=== PATIENT | female | born 1995 | race Caucasian/White ===

== ENCOUNTER 2020-08-30 15:46 | Emergency (ER) | payer OTHER ==
[~2020-08-30] VITALS: Ht 157.5 cm; Wt 68.2 kg
[2020-08-30] MEDS ORDERED: HYDR-3713 PO (15:53)
[2020-08-30] MEDS ORDERED: AMOX500C PO (15:53)
[2020-08-30] MEDS ORDERED: IBUP200C25 PO (15:53)
[2020-08-30] MEDS ORDERED: NS 1,000 ML IV ONE (17:25)
[2020-08-30] MEDS ORDERED: ONDANSETRON 4MG/2ML VIAL IV ONE (17:25)
[2020-08-30] MEDS ORDERED: MORPHINE 4 MG/ML 1ML VIAL/SYRINGE (J2270) IV ONE (17:25)
[2020-08-30 17:57] LABS: BASO # 0.1 10^3/uL (0.0-0.2); BASO % 0.6 % (0.0-1.0); EOS # 0.1 10^3/uL (0.0-0.5); EOS % 0.8 % (0.0-3.0); HEMATOCRIT 39.5 % (36.0-47.0); HEMOGLOBIN 12.6 g/dl (12.0-15.5); LYMPH # 1.6 10^3/uL (1.5-5.0); LYMPH % 16.3 % (24.0-44.0); MEAN CORPUSCULAR HEMOGLOBIN 29.3 pg (27.0-33.0); MEAN CORPUSCULAR HGB CONC 31.9 g/dl (32.0-36.5); MEAN CORPUSCULAR VOLUME 91.9 fl (80.0-96.0); MONO # 0.5 10^3/uL (0.0-0.8); MONO % 5.2 % (2.0-8.0); NEUTROPHILS # 7.3 10^3/uL (1.5-8.5); NEUTROPHILS % 76.8 % (36.0-66.0); PLATELET COUNT, AUTOMATED 341 10^3/uL (150-450); WHITE BLOOD COUNT 9.5 10^3/uL (4.0-10.0)
[2020-08-30 18:16] LABS: ERYTHROCYTE SEDIMENTATION RATE 16 mm/hr (0-20)
[2020-08-30] MEDS ORDERED: HYDR-3715 PO (19:21)
[2020-08-30] MEDS ORDERED: ONDA4TAB6 PO (19:21)
[2020-08-30 19:29] VITALS: BP 101/56
== END 2020-08-30 19:43 | disposition home or self-care (01) ==
LOC: M ED 15:46
DX: G89.18 Other acute postprocedural pain (principal); Z79.2 Long term (current) use of antibiotics; Z91.013 Allergy to seafood
CPT/HCPCS: 80047; 85025; 85652; 86140; 96374; 96375; 99283; J2270; J2405

== ENCOUNTER 2020-10-17 15:38 | Emergency (ER) | payer OTHER ==
[~2020-10-17] VITALS: Ht 157.5 cm; Wt 61.7 kg
[~2020-10-17 15:38] MED LIST: AMOX500C PO; HYDR-3713 PO; HYDR-3715 PO; IBUP200C25 PO; ONDA4TAB6 PO
[2020-10-17 20:53] VITALS: BP 107/55
== END 2020-10-17 20:55 | disposition home or self-care (01) ==
LOC: M ED 15:38
DX: R19.7 Diarrhea, unspecified (principal); Z91.013 Allergy to seafood

== ENCOUNTER 2021-04-06 09:27 | Emergency (ER) | payer OTHER ==
[~2021-04-06] VITALS: Ht 157.5 cm; Wt 60.1 kg
--- OUTSIDE RECORDS SUMMARY | 2021-04-06 09:36 | CCD ---
Author Author [facility] Organization [facility] Address Unknown Phone Unavailable Care Team Providers Care Freight Broker Agent Name Role Phone Kaitlynn Etienne MD Unavailable Unavailable Kaitlynn Etienne MD Unavailable Unavailable Kaitlynn Etienne MD Unavailable Unavailable Kaitlynn Etienne MD Unavailable Unavailable Kaitlynn Etienne MD Unavailable Unavailable Kaitlynn Etienne MD Unavailable Unavailable Kaitlynn Etienne MD Unavailable Unavailable Kaitlynn Etienne MD Unavailable Unavailable Kaitlynn Etienne MD Unavailable Unavailable Kaitlynn Etienne MD Unavailable Unavailable Kaitlynn Etienne MD Unavailable Unavailable Kaitlynn Etienne MD Unavailable Unavailable Kaitlynn Etienne MD Unavailable Unavailable Kaitlynn Etienne MD Unavailable Unavailable Kaitlynn Etienne MD Unavailable Unavailable Kaitlynn Etienne MD Unavailable Unavailable Kaitlynn Etienne MD Unavailable Unavailable Kaitlynn Etienne MD Unavailable Unavailable Kaitlynn Etienne MD Unavailable Unavailable Kaitlynn Etienne MD Unavailable Unavailable Kaitlynn Etienne MD Unavailable Unavailable Kaitlynn Etienne MD Unavailable Unavailable Kaitlynn Etienne MD Unavailable Unavailable Kaitlynn Etienne MD Unavailable Unavailable Kaitlynn Etienne MD Unavailable Unavailable Kaitlynn Etienne MD Unavailable Unavailable Kaitlynn Etienne MD Unavailable Unavailable Kaitlynn Etienne MD Unavailable Unavailable Kaitlynn Etienne MD Unavailable Unavailable Kaitlynn Etienne MD Unavailable Unavailable Kaitlynn Etienne MD Unavailable Unavailable Kaitlynn Etienne MD Unavailable Unavailable Kaitlynn Etienne MD Unavailable Unavailable Kaitlynn Etienne MD Unavailable Unavailable Kaitlynn Etienne MD Unavailable Unavailable Kaitlynn Etienne MD Unavailable Unavailable Kaitlynn Etienne MD Unavailable Unavailable Kaitlynn Etienne MD Unavailable Unavailable Kaitlynn Etienne MD Unavailable Unavailable Kaitlynn Etienne MD Unavailable Unavailable Kaitlynn Etienne MD Unavailable Unavailable Kaitlynn Etienne MD Unavailable Unavailable Kaitlynn Etienne MD Unavailable Unavailable Kaitlynn Etienne MD Unavailable Unavailable Kaitlynn Etienne MD Unavailable Unavailable Kaitlynn Etienne MD Unavailable Unavailable Kaitlynn Etienne MD Unavailable Unavailable Kaitlynn Etienne MD Unavailable Unavailable Kaitlynn Etienne MD Unavailable Unavailable Kaitlynn Etienne MD Unavailable Unavailable Kaitlynn Etienne MD Unavailable Unavailable Kaitlynn Etienne MD Unavailable Unavailable Kaitlynn Etienne MD Unavailable Unavailable Kaitlynn Etienne MD Unavailable Unavailable Kaitlynn Etienne MD Unavailable Unavailable Kaitlynn Etienne MD Unavailable Unavailable Kaitlynn Etienne MD Unavailable Unavailable Kaitlynn Etienne MD Unavailable Unavailable Kaitlynn Etienne MD Unavailable Unavailable Kaitlynn Etienne MD Unavailable Unavailable Kaitlynn Etienne MD Unavailable Unavailable Kaitlynn Etienne MD Unavailable Unavailable Kaitlynn Etienne MD Unavailable Unavailable Kaitlynn Etienne MD Unavailable Unavailable Kaitlynn Etienne MD Unavailable Unavailable Kaitlynn Etienne MD Unavailable Unavailable Kaitlynn Etienne MD Unavailable Unavailable Kaitlynn Etienne MD Unavailable Unavailable Kaitlynn Etienne MD Unavailable Unavailable Kaitlynn Etienne MD Unavailable Unavailable Kaitlynn Etienne MD Unavailable Unavailable Kaitlynn Etienne MD Unavailable Unavailable Kaitlynn Etienne MD Unavailable Unavailable Kaitlynn Etienne MD Unavailable Unavailable Kaitlynn Etienne MD Unavailable Unavailable Kaitlynn Etienne MD Unavailable Unavailable Kaitlynn Etienne MD Unavailable Unavailable Kaitlynn Etienne MD Unavailable Unavailable Kaitlynn Etienne MD Unavailable Unavailable Kaitlynn Etienne MD Unavailable Unavailable Kaitlynn Etienne MD Unavailable Unavailable Kaitlynn Etienne MD Unavailable Unavailable Kaitlynn Etienne MD Unavailable Unavailable Kaitlynn Etienne MD Unavailable Unavailable Kaitlynn Etienne MD Unavailable Unavailable Kaitlynn Etienne MD Unavailable Unavailable Kaitlynn Etienne MD Unavailable Unavailable Kaitlynn Etienne MD Unavailable Unavailable Kaitlynn Etienne MD Unavailable Unavailable Kaitlynn Etienne MD Unavailable Unavailable Kaitlynn Etienne MD Unavailable Unavailable Kaitlynn Etienne MD Unavailable Unavailable Kaitlynn Etienne MD Unavailable Unavailable LAROCK, J JARRELL SINGLE FOLD MACHINE OPERATOR Unavailable Unavailable LAROCK, J JARRELL SINGLE FOLD MACHINE OPERATOR Unavailable Unavailable LAROCK, J JARRELL SINGLE FOLD MACHINE OPERATOR Unavailable Unavailable LAROCK, J JARRELL SINGLE FOLD MACHINE OPERATOR Unavailable Unavailable LAROCK, J JARRELL SINGLE FOLD MACHINE OPERATOR Unavailable Unavailable LAROCK, J JARRELL SINGLE FOLD MACHINE OPERATOR Unavailable Unavailable LAROCK, J JARRELL SINGLE FOLD MACHINE OPERATOR Unavailable Unavailable LAROCK, J JARRELL SINGLE FOLD MACHINE OPERATOR Unavailable Unavailable LAROCK, J JARRELL SINGLE FOLD MACHINE OPERATOR Unavailable Unavailable LAROCK, J JARRELL SINGLE FOLD MACHINE OPERATOR Unavailable Unavailable LAROCK, J JARRELL SINGLE FOLD MACHINE OPERATOR Unavailable Unavailable LAROCK, J JARRELL SINGLE FOLD MACHINE OPERATOR Unavailable Unavailable LAROCK, J JARRELL SINGLE FOLD MACHINE OPERATOR Unavailable Unavailable LAROCK, J JARRELL SINGLE FOLD MACHINE OPERATOR Unavailable Unavailable LAROCK, J JARRELL SINGLE FOLD MACHINE OPERATOR Unavailable Unavailable LAROCK, J JARRELL SINGLE FOLD MACHINE OPERATOR Unavailable Unavailable LAROCK, J JARRELL SINGLE FOLD MACHINE OPERATOR Unavailable Unavailable LAROCK, J JARRELL SINGLE FOLD MACHINE OPERATOR Unavailable Unavailable LAROCK, J JARRELL SINGLE FOLD MACHINE OPERATOR Unavailable Unavailable LAROCK, J JARRELL SINGLE FOLD MACHINE OPERATOR Unavailable Unavailable LAROCK, J JARRELL SINGLE FOLD MACHINE OPERATOR Unavailable Unavailable LAROCK, J JARRELL SINGLE FOLD MACHINE OPERATOR Unavailable Unavailable Re-disclosure Warning The records that you are about to access may contain information from federally-assisted alcohol or drug abuse programs. If such information is present, then the following federally mandated warning applies: This information has been disclosed to you from records protected by federal confidentiality rules (42 CFR part 2). The federal rules prohibit you from making any further disclosure of this information unless further disclosure is expressly permitted by the written consent of the person to whom it pertains or as otherwise permitted by 42 CFR part 2. A general authorization for the release of medical or other information is NOT sufficient for this purpose. The Federal rules restrict any use of the information to criminally investigate or prosecute any alcohol or drug abuse patient.The records that you are about to access may contain highly sensitive health information, the redisclosure of which is protected by Article 27-F of the [facility] Public Health law. If you continue you may have access to information: Regarding HIV / AIDS; Provided by facilities licensed or operated by the [facility] Office of Mental Health; or Provided by the [facility] Office for People With Developmental Disabilities. If such information is present, then the following [facility] mandated warning applies: This information has been disclosed to you from confidential records which are protected by state law. State law prohibits you from making any further disclosure of this information without the specific written consent of the person to whom it pertains, or as otherwise permitted by law. Any unauthorized further disclosure in violation of state law may result in a fine or senior living sentence or both. A general authorization for the release of medical or other information is NOT sufficient authorization for further disc losure. Allergies and Adverse Reactions Type Description Substance Reaction Status Data Source(s ) Allergy to substance Allergy to substance Allergy to substance [facility] ([facility]) Allergy to substance Allergy to substance Allergy to substance [place] ([facility]) Family History Family Member Name Family Member Gender Family Member Status Date o f Status Description Data Source(s) Unknown Condition [facility] Unknown [facility] Unknown Condition [facility] Unknown Condition [facility] Unknown Condition [facility] Unknown Condition [facility] Unknown Condition [facility] Unknown Condition [facility] Unknown Condition [facility] Unknown Condition [facility] Unknown Condition [facility] Unknown Condition [facility] Encounters Encounter Providers Location Date Indications Data Source(s ) Socrates Etienne MD: [address] [place] [address] [phone], Ph. Attender: Socrates Etienne MD [facility] Medical 08/23/2020 12:00:00 AM EDT [place] ([facility]) Socrates Etienne MD: [address] [place] [address] [phone], Ph. Attender: Socrates Etienne MD [facility] Medical 07/26/2020 12:00:00 AM EDT [place] ([facility]) Socrates Etienne MD: [address] [place] [address] [phone], Ph. Attender: Socrates Etienne MD [facility] Medical 07/26/2020 12:00:00 AM EDT [place] ([facility]) Outpatient Attender: JARRELL MARIE NP 05/06 11:49:24 AM EST - 05/24/2020 12:25:35 PM EST [facility] ([facility] ) Immunizations Vaccine Date Status Description Data Source(s) COVID-19, mRNA, LNP-S, PF, 100 mcg/0.5 mL dose 08/23/2020 05 :18:39 PM EDT completed .5 mL [facility] ([facility]) COVID-19 VACCINE Moderna 08/23/2020 12:00:00 AM EDT completed [facility] Vaccine Series Complete: YESThis Data wa s Submitted to [facility] Via Take5. COVID-19, mRNA, LNP-S, PF, 100 mcg/0.5 mL dose 07/26/2020 05 :25:30 PM EDT completed .5 mL [facility] ([facility]) COVID-19, mRNA, LNP-S, PF, 100 mcg/0.5 mL dose 07/26/2020 05 :25:30 PM EDT completed .5 mL [facility] ([facility]) COVID-19 VACCINE Moderna 07/26/2020 12:00:00 AM EDT completed [facility] Vaccine Series Complete: NOThis Data was Submitted to [facility] Via Take5. Medications Medication Brand Name Start Date Product Form Dose Route Admi nistrative Instructions Pharmacy Instructions Status Indications Reaction Description Data Source(s) 500 mg 08/26/2020 12:00:00 AM EDT capsule 21 TAKE ONE CAPSULE BY MOUTH EVERY 8 HOURS UNTIL GONE TAKE ONE CAPSULE BY MOUTH EVERY 8 HOURS UNTIL GONE [facility] 0.12 % 08/26/2020 12:00:00 AM EDT mouthwash 473 RINSE AND SPIT WITH 15ML(1 CAPFUL) FOR 30 SECONDS IN THE MORNING AND EVENING AFTER BRUSHING TEETH RINSE AND SPIT WITH 15ML(1 CAPFUL) FOR 30 SECONDS IN THE MORNING AND EVENING AFTER BRUSHING TEETH SOLD: 08/26/2020 [facility] 800 mg 08/26/2020 12:00:00 AM EDT tablet 20 TAKE ONE TABLET BY MOUTH EVERY 8 HOURS TAKE ONE TABLET BY MOUTH EVERY 8 HOURS SOLD: 08/26/2020 [facility] Acetaminophen 325 MG / Hydrocodone Bitartrate 5 MG Ora l Tablet 5-325 mg HYDROCODONE/ACETAMINOPHEN 08/26/2020 12:00:00 AM EDT tablet 16 TAKE ONE TABLET BY MOUTH EVERY 6 HOURS NEEDED FOR PAIN MAXIMUM DAILY DOSE = 4 TABLETS TAKE ONE TABLET BY MOUTH EVERY 6 HOURS NEEDED FOR PAIN MAXIMUM DAILY DOSE = 4 TABLETS SOLD: 08/26/2020 [facility] Insurance Providers Payer name Policy type / Coverage type Policy ID Covered green party ID Covered green party's relationship to house Policy House Plan Information [employer]. [id number] Self [id number] GUSTAVO [id number] SP [id number] GUSTAVO [id number] Managed Care [place] P UNAVAILABLE S UNAVAILABLE MEDICAID -O/P EMERGENCY ROOM [id number] [facility] P UNAVAILABLE S UNAVAILABLE Problems, Conditions, and Diagnoses No Information Surgeries/Procedures No Information Results ID Date Data Source [id number] 05/24/2020 12:00:00 AM EST [facility] Name Value Range Interpretation Code Description Data Mariana rce(s) Supporting Document(s) SARS coronavirus 2 RNA [Presence] in Res piratory specimen by MIKE with probe detection NEGATIVE [facility] This lab was ordered by Judith Magallon and reported by [facility]. ID Date Data Source [id number] 05/24/2020 12:00:00 AM EST [facility] Name Value Range Interpretation Code Description Data Mariana rce(s) Supporting Document(s) Carestart Rapid COVID Antigen Test Negative [facility] This lab was reported by Judith pereira. Procedure Social History No Information
[2021-04-06 10:06] LABS: BASO # 0.1 10^3/uL (0.0-0.2); EOS # 0.2 10^3/uL (0.0-0.5); EOS % 3.6 % (0.0-3.0); HEMATOCRIT 40.1 % (36.0-47.0); HEMOGLOBIN 12.7 g/dl (12.0-15.5); LYMPH # 1.7 10^3/uL (1.5-5.0); LYMPH % 28.6 % (24.0-44.0); MEAN CORPUSCULAR HEMOGLOBIN 30.2 pg (27.0-33.0); MEAN CORPUSCULAR HGB CONC 31.7 g/dl (32.0-36.5); MEAN CORPUSCULAR VOLUME 95.5 fl (80.0-96.0); MONO # 0.5 10^3/uL (0.0-0.8); MONO % 9.2 % (2.0-8.0); NEUTROPHILS # 3.4 10^3/uL (1.5-8.5); NEUTROPHILS % 57.3 % (36.0-66.0); PLATELET COUNT, AUTOMATED 307 10^3/uL (150-450); WHITE BLOOD COUNT 5.9 10^3/uL (4.0-10.0)
[2021-04-06 10:16] LABS: APPEARANCE, URINE CLOUDY (CLEAR); BACTERIA, URINE AUTO 1+ (NEGATIVE); BILIRUBIN, URINE AUTO NEGATIVE (NEGATIVE); BLOOD, URINE BLOOD 3+ (NEGATIVE); CALCIUM OXALATE CRYSTALS LARGE; COLOR, URINE AMBER (YELLOW); GLUCOSE, URINE (UA) AUTO NEGATIVE (NEGATIVE); KETONE, URINE AUTO TRACE mg/dL (NEGATIVE); LEUKOCYTE ESTERASE, URINE AUTO NEGATIVE (NEGATIVE); MUCUS, URINE LARGE (NEGATIVE); NITRITE, URINE AUTO NEGATIVE (NEGATIVE); PROTEIN, URINE AUTO 2+ mg/dL (NEGATIVE); RBC, URINE AUTO TNTC /HPF (0-3); SPECIFIC GRAVITY URINE AUTO 1.032 (1.002-1.035); SQUAMOUS EPITHELIAL CELL UR AU 55 /HPF (0-6); WBC, URINE AUTO 6 /HPF (0-3)
[2021-04-06 10:41] LABS: BLOOD UREA NITROGEN 18 MG/DL (7-18); CALCIUM LEVEL 9.1 MG/DL (8.5-10.1); CARBON DIOXIDE LEVEL 30 MEQ/L (21-32); CHLORIDE LEVEL 109 MEQ/L (98-107); CREATININE FOR GFR 0.64 MG/DL (0.55-1.30); GLOMERULAR FILTRATION RATE > 60.0 (>60); GLUCOSE, FASTING 87 MG/DL (70-100); HCG, SERUM QUANTITATIVE 8 MIU/ML; POTASSIUM SERUM 3.9 MEQ/L (3.5-5.1); SODIUM LEVEL 143 MEQ/L (136-145)
--- OUTSIDE RECORDS SUMMARY | 2021-04-06 11:08 | CCD ---
Author Author [facility] Organization [facility] Address Unknown Phone Unavailable Care Team Providers Care Sign Fabricator Name Role Phone Kaitlynn Etienne MD Unavailable [...] Etienne MD Unavailable Unavailable LAROCK, J JARRELL COMMERCIAL SALES DIRECTOR Unavailable Unavailable LAROCK, J JARRELL COMMERCIAL SALES DIRECTOR Unavailable Unavailable LAROCK, J JARRELL COMMERCIAL SALES DIRECTOR Unavailable Unavailable LAROCK, J JARRELL COMMERCIAL SALES DIRECTOR Unavailable Unavailable LAROCK, J JARRELL COMMERCIAL SALES DIRECTOR Unavailable Unavailable LAROCK, J JARRELL COMMERCIAL SALES DIRECTOR Unavailable Unavailable LAROCK, J JARRELL COMMERCIAL SALES DIRECTOR Unavailable Unavailable LAROCK, J JARRELL COMMERCIAL SALES DIRECTOR Unavailable Unavailable LAROCK, J JARRELL COMMERCIAL SALES DIRECTOR Unavailable Unavailable LAROCK, J JARRELL COMMERCIAL SALES DIRECTOR Unavailable Unavailable LAROCK, J JARRELL COMMERCIAL SALES DIRECTOR Unavailable Unavailable LAROCK, J JARRELL COMMERCIAL SALES DIRECTOR Unavailable Unavailable LAROCK, J JARRELL COMMERCIAL SALES DIRECTOR Unavailable Unavailable LAROCK, J JARRELL COMMERCIAL SALES DIRECTOR Unavailable Unavailable LAROCK, J JARRELL COMMERCIAL SALES DIRECTOR Unavailable Unavailable LAROCK, J JARRELL COMMERCIAL SALES DIRECTOR Unavailable Unavailable LAROCK, J JARRELL COMMERCIAL SALES DIRECTOR Unavailable Unavailable LAROCK, J JARRELL COMMERCIAL SALES DIRECTOR Unavailable Unavailable LAROCK, J JARRELL COMMERCIAL SALES DIRECTOR Unavailable Unavailable LAROCK, J JARRELL COMMERCIAL SALES DIRECTOR Unavailable Unavailable LAROCK, J JARRELL COMMERCIAL SALES DIRECTOR Unavailable Unavailable LAROCK, J JARRELL COMMERCIAL SALES DIRECTOR Unavailable Unavailable Re-disclosure Warning The records that [...] is protected by Article 27-F of the [facility] Public Health law. If you continue you may have access to information: Regarding HIV / AIDS; Provided by facilities licensed or operated by the [facility] Office of Mental Health; or Provided by the [facility] Office for People With Developmental Disabilities. If such information is present, then the following [facility] mandated warning applies: This information has been [...] law may result in a fine or half-way sentence or both. A general authorization for the release of medical or other information is NOT sufficient authorization for further disc losure. Allergies and Adverse Reactions Type Description Substance Reaction Status Data Source(s ) Allergy to substance Allergy to substance Allergy to substance [facility] ([facility]) Allergy to substance Allergy to substance Allergy to substance [place] ([facility]) Family History Family Member Name Family Member Gender Family Member Status Date o f Status Description Data Source(s) Unknown Condition [facility] Unknown Condition [facility] Unknown Condition [facility] Unknown Condition [facility] Unknown Condition [facility] Unknown Condition [facility] Unknown Condition [facility] Unknown Condition [facility] Unknown Condition [facility] Unknown Condition [facility] Unknown Condition [facility] Unknown Condition [facility] Encounters Encounter Providers Location Date Indications Data Source(s ) Socrates Etienne MD: [address] [place] [address] [phone], Ph. Attender: Socrates Etienne MD [facility] Medical 08/23/2020 12:00:00 AM EDT [place] ([facility]) Socrates Etienne MD: [address] [place] [address] [phone], Ph. Attender: Socrates Etienne MD [facility] Medical 07/26/2020 12:00:00 AM EDT [place] ([facility]) Socrates Etienne MD: [address] [place] [address] [phone], Ph. Attender: Socrates Etienne MD [facility] Medical 07/26/2020 12:00:00 AM EDT [place] ([facility]) Outpatient Attender: JARRELL MARIE NP 05/06 11:49:24 AM EST - 05/24/2020 12:25:35 PM EST [facility] ([facility] ) Immunizations Vaccine Date Status Description Data Source(s) COVID-19, mRNA, LNP-S, PF, 100 mcg/0.5 mL dose 08/23/2020 05 :18:39 PM EDT completed .5 mL [facility] ([facility]) COVID-19 VACCINE Moderna 08/23/2020 12:00:00 AM EDT completed [facility] Vaccine Series Complete: YESThis Data wa s Submitted to [facility] Via MyWants. COVID-19, mRNA, LNP-S, PF, 100 mcg/0.5 mL dose 07/26/2020 05 :25:30 PM EDT completed .5 mL [facility] ([facility]) COVID-19, mRNA, LNP-S, PF, 100 mcg/0.5 mL dose 07/26/2020 05 :25:30 PM EDT completed .5 mL [facility] ([facility]) COVID-19 VACCINE Moderna 07/26/2020 12:00:00 AM EDT completed [facility] Vaccine Series Complete: NOThis Data was Submitted to [facility] Via MyWants. Medications Medication Brand Name Start Date Product [...] type / Coverage type Policy ID Covered libertarian ID Covered libertarian's relationship to house Policy House Plan Information [email or web address]. [id number] Self [id number] GUSTAVO [id number] SP [id number] GUSTAVO [id number] Managed Care [place] P UNAVAILABLE S UNAVAILABLE MEDICAID -O/P EMERGENCY ROOM [id number] P UNAVAILABLE S UNAVAILABLE Problems, Conditions, and Diagnoses No Information Surgeries/Procedures No Information Results ID Date Data Source [id number] 05/24/2020 12:00:00 AM EST [facility] Name Value Range Interpretation Code Description Data Mariana rce(s) Supporting Document(s) SARS coronavirus 2 RNA [Presence] in Res piratory specimen by MIKE with probe detection NEGATIVE [facility] This lab was ordered by Judith Magallon and reported by [facility]. ID Date Data Source [id number] 05/24/2020 12:00:00 AM EST [facility] Name Value Range Interpretation Code Description Data Mariana rce(s) Supporting Document(s) Carestart Rapid COVID Antigen Test Negative [facility] This lab was reported by Judith pereira. Procedure Social History No Information
[2021-04-06 12:08] VITALS: BP 95/55
== END 2021-04-06 12:32 | disposition home or self-care (01) ==
LOC: M ED 09:27
DX: Z32.00 Encounter for pregnancy test, result unknown (principal); N93.9 Abnormal uterine and vaginal bleeding, unspecified; R11.0 Nausea; Z91.013 Allergy to seafood

== ENCOUNTER → 2021-04-08 | Outpatient (CLI) | payer OTHER | LOC: M LAB 13:00 | PROVIDERS: ATTEND Specialist | DX: Z32.00 Encounter for pregnancy test, result unknown (principal) ==

== ENCOUNTER 2021-07-17 23:33 | Emergency (ER) | payer OTHER ==
[~2021-07-17] VITALS: Ht 157.5 cm; Wt 64.1 kg
[2021-07-18 00:14] LABS: APPEARANCE, URINE CLOUDY (CLEAR); BACTERIA, URINE AUTO NEGATIVE (NEGATIVE); BILIRUBIN, URINE AUTO NEGATIVE (NEGATIVE); BLOOD, URINE BLOOD NEGATIVE (NEGATIVE); COLOR, URINE AMBER (YELLOW); GLUCOSE, URINE (UA) AUTO NEGATIVE (NEGATIVE); KETONE, URINE AUTO TRACE mg/dL (NEGATIVE); LEUKOCYTE ESTERASE, URINE AUTO 1+ (NEGATIVE); MUCUS, URINE LARGE (NEGATIVE); NITRITE, URINE AUTO NEGATIVE (NEGATIVE); PROTEIN, URINE AUTO 1+ mg/dL (NEGATIVE); RBC, URINE AUTO 2 /HPF (0-3); SPECIFIC GRAVITY URINE AUTO 1.028 (1.002-1.035); SQUAMOUS EPITHELIAL CELL UR AU 20 /HPF (0-6); WBC, URINE AUTO 3 /HPF (0-3)
[2021-07-18 00:18] LABS: URINE PREG TEST POSITIVE (NEGATIVE)
[2021-07-18 01:50] LABS: BASO % 0.2 % (0.0-1.0); EOS # 0.1 10^3/uL (0.0-0.5); EOS % 0.6 % (0.0-3.0); HEMATOCRIT 35.7 % (36.0-47.0); HEMOGLOBIN 11.5 g/dl (12.0-15.5); LYMPH # 0.8 10^3/uL (1.5-5.0); LYMPH % 5.6 % (24.0-44.0); MEAN CORPUSCULAR HEMOGLOBIN 30.1 pg (27.0-33.0); MEAN CORPUSCULAR HGB CONC 32.2 g/dl (32.0-36.5); MEAN CORPUSCULAR VOLUME 93.5 fl (80.0-96.0); MONO # 0.6 10^3/uL (0.0-0.8); MONO % 4.6 % (2.0-8.0); NEUTROPHILS # 12.3 10^3/uL (1.5-8.5); NEUTROPHILS % 88.6 % (36.0-66.0); PLATELET COUNT, AUTOMATED 292 10^3/uL (150-450); RED BLOOD COUNT 3.82 10^6/uL (4.00-5.40); WHITE BLOOD COUNT 13.9 10^3/uL (4.0-10.0)
[2021-07-18 02:37] LABS: ALBUMIN 3.6 GM/DL (3.2-5.2); ALT/SGPT 24 U/L (12-78); BILIRUBIN,DIRECT 0.1 MG/DL (0.0-0.2); BILIRUBIN,TOTAL 0.4 MG/DL (0.2-1.0); BLOOD UREA NITROGEN 10 MG/DL (7-18); CARBON DIOXIDE LEVEL 25 MEQ/L (21-32); CHLORIDE LEVEL 107 MEQ/L (98-107); CREATININE FOR GFR 0.53 MG/DL (0.55-1.30); GLOMERULAR FILTRATION RATE > 60.0 (>60); GLUCOSE, FASTING 102 MG/DL (70-100); HCG, SERUM QUANTITATIVE 54479 MIU/ML; LIPASE 75 U/L (73-393); POTASSIUM SERUM 3.6 MEQ/L (3.5-5.1); SODIUM LEVEL 139 MEQ/L (136-145); TOTAL PROTEIN 7.1 GM/DL (6.4-8.2)
[2021-07-18] MEDS ORDERED: MORPHINE 4 MG/ML 1ML VIAL/SYRINGE (J2270) IV PRN (04:50)
[2021-07-18] MEDS ORDERED: NS 1,000 ML IV ONE (04:50)
[2021-07-18] MEDS ORDERED: ONDANSETRON 4MG/2ML VIAL IV ONE (04:50)
[2021-07-18] MEDS ORDERED: PREN1TAB26 PO (12:13)
[2021-07-18] MEDS ORDERED: ONDA4TAB6 PO (12:13)
[2021-07-18 12:40] VITALS: BP 84/58
== END 2021-07-18 13:05 | disposition home or self-care (01) ==
LOC: M ED 23:33
DX: O26.92 Pregnancy related conditions, unspecified, second trimester (principal); R10.9 Unspecified abdominal pain; R11.2 Nausea with vomiting, unspecified; R19.7 Diarrhea, unspecified; Z79.899 Other long term (current) drug therapy; Z3A.15 15 weeks gestation of pregnancy
CPT/HCPCS: 74181; 76705; 76811; 80048; 80076; 81001; 83690; 84702; 84703; 85025; 86850; 86900; 86901; 93976; 96361; 96374; 96375; 99284; J2270; J2405

== ENCOUNTER → 2021-07-28 | Outpatient (CLI) | payer OTHER ==
[~2021-07-28] MED LIST changes: +PREN1TAB26 PO
[2021-07-28 15:19] LABS: HEMATOCRIT 30.8 % (36.0-47.0); MEAN CORPUSCULAR HGB CONC 32.5 g/dl (32.0-36.5); MEAN CORPUSCULAR VOLUME 92.5 fl (80.0-96.0); PLATELET COUNT, AUTOMATED 376 10^3/uL (150-450); RED BLOOD COUNT 3.33 10^6/uL (4.00-5.40); WHITE BLOOD COUNT 8.8 10^3/uL (4.0-10.0)
[2021-07-28 17:12] LABS: GC DNA AMPLIFICATION NEGATIVE (NEGATIVE)
[2021-07-28 19:10] LABS: HEPATITIS C VIRUS ABY INDEX 0.2 INDEX (<0.8); HIV 1&2 SCREEN CENTAUR NEGATIVE (NEGATIVE)
== END ==
LOC: M PLALAB 12:08
PROVIDERS: ATTEND Obstetrics & Gynecology
DX: Z34.90 Encounter for supervision of normal pregnancy, unspecified, unspecified trimester (principal)

== ENCOUNTER → 2021-08-08 | Outpatient (CLI) | payer OTHER | LOC: M WHC 14:06 | PROVIDERS: ATTEND Obstetrics & Gynecology | DX: Z36.89 Encounter for other specified antenatal screening (principal); Z3A.17 17 weeks gestation of pregnancy ==

== ENCOUNTER → 2021-08-15 | Outpatient (CLI) | payer OTHER ==
[2021-08-15 17:29] LABS: PERCENT SATURATION 12.7 % (13.2-45.0)
== END ==
LOC: M PLALAB 14:07
PROVIDERS: ATTEND Obstetrics & Gynecology
DX: D64.9 Anemia, unspecified (principal)

== ENCOUNTER → 2021-09-12 | Outpatient (CLI) | payer OTHER ==
[2021-09-12 13:42] LABS: HEMATOCRIT 30.1 % (36.0-47.0); HEMOGLOBIN 9.5 g/dl (12.0-15.5); MEAN CORPUSCULAR HEMOGLOBIN 30.4 pg (27.0-33.0); MEAN CORPUSCULAR HGB CONC 31.6 g/dl (32.0-36.5); MEAN CORPUSCULAR VOLUME 96.5 fl (80.0-96.0); PLATELET COUNT, AUTOMATED 256 10^3/uL (150-450); RED BLOOD COUNT 3.12 10^6/uL (4.00-5.40); WHITE BLOOD COUNT 7.7 10^3/uL (4.0-10.0)
== END ==
LOC: M PLALAB 08:40
PROVIDERS: ATTEND Obstetrics & Gynecology
DX: O34.12 Maternal care for benign tumor of corpus uteri, second trimester (principal)

== ENCOUNTER → 2021-09-13 | Outpatient (CLI) | payer OTHER | LOC: M WHC 08:26 | PROVIDERS: ATTEND Obstetrics & Gynecology | DX: O34.12 Maternal care for benign tumor of corpus uteri, second trimester (principal) ==

== ENCOUNTER 2021-11-30 21:38 | Outpatient (CLI) | payer OTHER ==
[~2021-11-30] VITALS: Ht 157.5 cm; Wt 72.5 kg
[2021-11-30] VITALS (13 sets, daily range): BP systolic 83–132; BP diastolic 53–64
[2021-11-30] MEDS ORDERED: LR 1,000 ML IV SCH (22:00)
[2021-11-30] MEDS ORDERED: LR 1,000 ML IV ONE (22:00)
[2021-11-30 22:01] LABS: HEMATOCRIT 26.5 % (36.0-47.0); HEMOGLOBIN 8.3 g/dl (12.0-15.5); MEAN CORPUSCULAR HEMOGLOBIN 28.3 pg (27.0-33.0); MEAN CORPUSCULAR HGB CONC 31.3 g/dl (32.0-36.5); MEAN CORPUSCULAR VOLUME 90.4 fl (80.0-96.0); PLATELET COUNT, AUTOMATED 271 10^3/uL (150-450); RED BLOOD COUNT 2.93 10^6/uL (4.00-5.40); WHITE BLOOD COUNT 8.7 10^3/uL (4.0-10.0)
[2021-11-30] MEDS ORDERED: FERR325T3 PO (22:17)
[2021-11-30] MEDS ORDERED: HOME MED LIST COMPLETE! XX SCH (22:20)
[2021-11-30 22:34] LABS: AMPHETAMINES URINE REFLEX NEGATIVE (NEGATIVE); BARBITURATES URINE REFLEX NEGATIVE (NEGATIVE); BENZODIAZEPINES URINE REFLEX NEGATIVE (NEGATIVE); CANNABINOIDS URINE REFLEX NEGATIVE (NEGATIVE); COCAINE METABOLITE URINE REFLE NEGATIVE (NEGATIVE); METHADONE URINE REFLEX NEGATIVE (NEGATIVE); OPIATES URINE REFLEX NEGATIVE (NEGATIVE); PHENCYCLIDINE URINE REFLEX NEGATIVE (NEGATIVE)
[2021-12-01] VITALS (13 sets, daily range): BP systolic 85–121; BP diastolic 46–64
[2021-12-01] MEDS ORDERED: MORPHINE 10 MG/ML 1ML VIAL SC ONE (00:20)
[2021-12-01] MEDS ORDERED: IRON SUCROSE 100MG 5ML VIAL (J1756 PER 1MG) IV ONE (00:20)
[2021-12-01] MEDS ORDERED: PROMETHAZINE 25MG/ML 1ML VIAL IV ONE (01:00)
[2021-12-01] MEDS ORDERED: IRON SUCROSE 300 MG in NS 250 ML OVER 90 MIN. IV ONE (01:00)
[2021-12-01] MEDS ORDERED: MORPHINE 10 MG/ML 1ML VIAL IV ONE (01:00)
[2021-12-01] MEDS ORDERED: IRON SUCROSE 500 MG in NS 250 ML IV ONE (02:00)
== END 2021-12-01 09:23 | disposition home or self-care (01) ==
LOC: M LDO 21:38
PROVIDERS: ATTEND Obstetrics & Gynecology
DX: O60.03 Preterm labor without delivery, third trimester (principal); O26.893 Other specified pregnancy related conditions, third trimester; R10.2 Pelvic and perineal pain; O99.013 Anemia complicating pregnancy, third trimester; D50.9 Iron deficiency anemia, unspecified; Z3A.35 35 weeks gestation of pregnancy
CPT/HCPCS: 59025; 80307; 81001; 82731; 85027; 87086; 87426; 96365; 96366; 96374; 96375; J1756; J2270; J2550

== ENCOUNTER → 2021-12-15 | Outpatient (CLI) | payer OTHER ==
[~2021-12-15] MED LIST changes: +FERR325T3 PO
[2021-12-15 14:09] LABS: HEMATOCRIT 32.5 % (36.0-47.0); HEMOGLOBIN 9.6 g/dl (12.0-15.5); MEAN CORPUSCULAR HEMOGLOBIN 27.6 pg (27.0-33.0); MEAN CORPUSCULAR HGB CONC 29.5 g/dl (32.0-36.5); MEAN CORPUSCULAR VOLUME 93.4 fl (80.0-96.0); PLATELET COUNT, AUTOMATED 280 10^3/uL (150-450); RED BLOOD COUNT 3.48 10^6/uL (4.00-5.40); WHITE BLOOD COUNT 7.8 10^3/uL (4.0-10.0)
== END ==
LOC: M PLALAB 10:24
PROVIDERS: ATTEND Obstetrics & Gynecology
DX: O99.019 Anemia complicating pregnancy, unspecified trimester (principal); Z3A.00 Weeks of gestation of pregnancy not specified

== ENCOUNTER → 2021-12-20 | Outpatient (REF) | payer OTHER | LOC: M SFHCWAGY 13:21 | PROVIDERS: ATTEND Advanced Practice Midwife | DX: O34.211 Maternal care for low transverse scar from previous cesarean delivery (principal) ==

== ENCOUNTER → 2021-12-24 | Outpatient (CLI) | payer OTHER | LOC: M LABSMTC 10:25 | PROVIDERS: ATTEND Anesthesiology | DX: Z01.818 Encounter for other preprocedural examination (principal); Z11.52 Encounter for screening for COVID-19 ==

== ENCOUNTER 2021-12-29 07:18 | Inpatient (IN) | payer OTHER ==
[2021-12-29] VITALS (8 sets, daily range): BP systolic 90–108; BP diastolic 48–59
[~2021-12-29] VITALS: Ht 157.5 cm; Wt 75.1 kg
[2021-12-29] MEDS ORDERED: LACTATED RINGER'S 1000 ML IV STA (07:58)
[2021-12-29] MEDS ORDERED: ceFAZolin SOD 2 GM in IV 1 EA IV ONE (08:00)
[2021-12-29] MEDS ORDERED: LR 1,000 ML IV SCH ×2 (08:00→12:15)
[2021-12-29] MEDS ORDERED: BICITRA 30ML SOLN UDC PO ONE (08:00)
[2021-12-29] MEDS ORDERED: propofoL 200 MG/20 ML VIAL As Ordered ONE ×3 (08:26→11:29)
[2021-12-29] MEDS ORDERED: OXYTOCIN INJ 10 UNITS/ML VIAL (J2590) As Ordered ONE ×2 (08:39→08:40)
[2021-12-29 09:30] LABS: HEMATOCRIT 33.2 % (36.0-47.0); HEMOGLOBIN 10.3 g/dl (12.0-15.5); MEAN CORPUSCULAR HEMOGLOBIN 28.2 pg (27.0-33.0); PLATELET COUNT, AUTOMATED 252 10^3/uL (150-450); RED BLOOD COUNT 3.65 10^6/uL (4.00-5.40); WHITE BLOOD COUNT 6.8 10^3/uL (4.0-10.0)
[2021-12-29] MEDS ORDERED: HOME MED LIST COMPLETE! XX SCH (09:40)
[2021-12-29] MEDS ORDERED: ePHEDrine SULFATE 25 MG/5 ML(5MG/ML) SYRINGE As Ordered ONE (10:30)
[2021-12-29] MEDS ORDERED: PHENYLephrine 500MCG 5ML (100MCG/ML) SYRINGE As Ordered ONE (10:36)
[2021-12-29] MEDS ORDERED: ONDANSETRON 4MG 2ML VIAL As Ordered ONE (10:41)
[2021-12-29] MEDS ORDERED: dexameTHASONE 4 MG/ML 1ML VIAL (J1100 PER 1MG) As Ordered ONE (10:41)
[2021-12-29] MEDS ORDERED: MORPHINE PRES-FREE INJ 10 MG/10 ML VIAL As Ordered ONE (11:33)
[2021-12-29] MEDS ORDERED: KETOROLAC 60MG 2ML VIAL As Ordered ONE (11:34)
[2021-12-29] MEDS ORDERED: OXYTOCIN 30 UNITS IN 0.9% NaCl 500ML IV BAG (J2590) As Ordered ONE ×2 (11:49→12:50)
[2021-12-29] MEDS ORDERED: ACETAMINOPHEN 1000MG 100ML IV BTL (OFIRMEV) (J0131 PER 10MG) As Ordered ONE (11:51)
[2021-12-29] MEDS ORDERED: OXYTOCIN DRIP 30 UNITS in IV 1 EA IV SCH (12:05)
[2021-12-29] MEDS ORDERED: MOM 30ML SUSPENSION UDC PO PRN (12:05)
[2021-12-29] MEDS ORDERED: METHYLERGONOVINE MALEATE 0.2 MG/ML VIAL (J2210) IM PRN (12:05)
[2021-12-29] MEDS ORDERED: PERCOCET 5MG/325MG TAB PO PRN (12:05)
[2021-12-29] MEDS ORDERED: ONDANSETRON 4MG 2ML VIAL IV PRN ×2 (12:05→12:15)
[2021-12-29] MEDS ORDERED: SIMETHICONE 80MG CHEW TAB PO PRN (12:05)
[2021-12-29] MEDS ORDERED: MORPHINE 4 MG/ML 1ML VIAL/SYRINGE IV PRN (12:05)
[2021-12-29] MEDS ORDERED: RHOGAM 300 MCG (1500 IU) INJ (J2790) IM SCH (12:05)
[2021-12-29] MEDS ORDERED: METOCLOPRAMIDE INJ 10MG/2ML VIAL (J2765 PER 1) IV PRN ×2 (12:15)
[2021-12-29] MEDS ORDERED: NALOXONE INJ 0.4MG/1ML VIAL (J2310 PER 1MG) IV PRN ×2 (12:15)
[2021-12-29] MEDS ORDERED: diphenhydrAMINE 50MG/ML VIAL (J1200) IV PRN (12:15)
[2021-12-29] MEDS ORDERED: oxyCODONE 5MG TAB PO PRN (12:15)
[2021-12-29] MEDS ORDERED: MEPERIDINE INJ 25 MG/ML VIAL (J2175) IV PRN (12:15)
[2021-12-29] MEDS ORDERED: ALBUTEROL SULFATE 2.5 MG/0.5 ML INH NEB SOLN INH ONE (12:15)
[2021-12-29] MEDS ORDERED: **NOTE PATIENT COMMENT** MISC XX SCH (12:15)
[2021-12-29] MEDS ORDERED: fentaNYL 100 MCG/2 ML INJECTION As Ordered ONE (12:26)
[2021-12-29] MEDS: fentaNYL 100 MCG/2 ML INJECTION IV PRN ×4 (12:27→12:56)
[2021-12-29] MEDS ORDERED: diphenhydrAMINE 50MG/ML VIAL (J1200) As Ordered ONE (12:30)
[2021-12-29] MEDS ORDERED: oxyCODONE 5MG TAB As Ordered ONE (12:38)
[2021-12-29] MEDS: LR 1,000 ML IV SCH ×2 (12:58→20:05)
[2021-12-29] MEDS: SLF 3 ML SYR IV SCH ×2 (13:58→20:15)
[2021-12-29] MEDS ORDERED: METHYLERGONOVINE MALEATE 0.2 MG/ML VIAL (J2210) ONE (16:30)
[2021-12-29] MEDS: KETOROLAC 30 MG/ML 1ML VIAL IV SCH (17:33)
[2021-12-29] MEDS: DOCUSATE SODIUM 100MG CAPSULE PO SCH (20:55)
[2021-12-30] VITALS (8 sets, daily range): BP systolic 47–101; BP diastolic 47–64
[2021-12-30] MEDS: SLF 3 ML SYR IV SCH (04:15)
[2021-12-30] MEDS: KETOROLAC 30 MG/ML 1ML VIAL IV SCH ×2 (06:14)
[2021-12-30] MEDS: LR 1,000 ML IV SCH (06:15)
[2021-12-30] MEDS: PERCOCET 5MG/325MG TAB PO PRN ×3 (06:38→20:14)
[2021-12-30 08:15] LABS: HEMATOCRIT 23.2 % (36.0-47.0); MEAN CORPUSCULAR HEMOGLOBIN 28.5 pg (27.0-33.0); MEAN CORPUSCULAR VOLUME 91.7 fl (80.0-96.0); PLATELET COUNT, AUTOMATED 217 10^3/uL (150-450); RED BLOOD COUNT 2.53 10^6/uL (4.00-5.40)
[2021-12-30 08:27] LABS: HEMOGLOBIN 7.2 g/dl (12.0-15.5)
[2021-12-30] MEDS ORDERED: BOOSTRIX/ADACEL VACCINE (DIPHTH/PERTUSS/ACELL/TETANUS) 0.5ML SYR IM.IMMUN ONE (09:00)
[2021-12-30] MEDS: DOCUSATE SODIUM 100MG CAPSULE PO SCH ×2 (09:58→21:08)
[2021-12-30] MEDS: PRENATAL VITAMINS CHEWABLE TABLET PO SCH (09:58)
[2021-12-30] MEDS: IBUPROFEN 800 MG TAB PO SCH ×2 (14:02→22:02)
[2021-12-31] MEDS: PERCOCET 5MG/325MG TAB PO PRN ×5 (02:15→20:24)
[2021-12-31 02:55] VITALS: BP 90/54
[2021-12-31] MEDS: IBUPROFEN 800 MG TAB PO SCH ×3 (05:51→21:33)
[2021-12-31 06:33] VITALS: BP 100/50
[2021-12-31] MEDS ORDERED: IBUP80TA PO (08:38)
[2021-12-31] MEDS ORDERED: PERCOCET PO (08:38)
[2021-12-31] MEDS: PRENATAL VITAMINS CHEWABLE TABLET PO SCH (08:50)
[2021-12-31] MEDS: DOCUSATE SODIUM 100MG CAPSULE PO SCH ×2 (08:50→20:23)
[2021-12-31] MEDS ORDERED: MEASLES,MUMPS,RUBELLA VACCINE INJ (MMR-II) (90707) SC.IMMUN ONE (09:00)
[2021-12-31 09:50] VITALS: BP 102/54
[2021-12-31 12:08] LABS: HEMATOCRIT 23.3 % (36.0-47.0); HEMOGLOBIN 7.2 g/dl (12.0-15.5); MEAN CORPUSCULAR HEMOGLOBIN 28.2 pg (27.0-33.0); MEAN CORPUSCULAR HGB CONC 30.9 g/dl (32.0-36.5); MEAN CORPUSCULAR VOLUME 91.4 fl (80.0-96.0); PLATELET COUNT, AUTOMATED 216 10^3/uL (150-450); RED BLOOD COUNT 2.55 10^6/uL (4.00-5.40); WHITE BLOOD COUNT 8.8 10^3/uL (4.0-10.0)
[2021-12-31 14:05] VITALS: BP 109/68
[2021-12-31 17:57] VITALS: BP 101/55
[2021-12-31 22:00] VITALS: BP 104/59
[2022-01-01 02:00] VITALS: BP 118/56
[2022-01-01] MEDS: PERCOCET 5MG/325MG TAB PO PRN ×2 (03:48→11:11)
[2022-01-01] MEDS: IBUPROFEN 800 MG TAB PO SCH (05:37)
[2022-01-01 06:00] VITALS: BP 101/51
[2022-01-01] MEDS: PRENATAL VITAMINS CHEWABLE TABLET PO SCH (08:48)
[2022-01-01] MEDS: DOCUSATE SODIUM 100MG CAPSULE PO SCH (08:48)
[2022-01-01 10:44] VITALS: BP 101/51
== END 2022-01-01 13:40 | disposition home or self-care (01) | DRG 540 ==
LOC: M LDI 07:18 → M OBS 13:40
PROVIDERS: ADMIT Obstetrics & Gynecology; ATTEND Obstetrics & Gynecology
PROC: 0UT70ZZ Resection of Bilateral Fallopian Tubes, Open Approach (ICD-10-PCS; 2021-12-29)
PROC: 10D00Z1 Extraction of Products of Conception, Low, Open Approach (ICD-10-PCS; principal; 2021-12-29 09:30)
DX: O34.211 Maternal care for low transverse scar from previous cesarean delivery (principal); D64.9 Anemia, unspecified; Z3A.39 39 weeks gestation of pregnancy; Z37.0 Single live birth; Z30.2 Encounter for sterilization; O99.02 Anemia complicating childbirth

== ENCOUNTER 2022-05-17 18:07 | Emergency (ER) | payer OTHER ==
[~2022-05-17] VITALS: Ht 157.5 cm; Wt 62.0 kg
[~2022-05-17 18:07] MED LIST changes: +IBUP80TA PO; +PERCOCET PO
[2022-05-17 18:08] VITALS: BP 102/65
== END 2022-05-17 20:31 | disposition left against medical advice (07) ==
LOC: M ED 18:07
DX: Z53.21 Procedure and treatment not carried out due to patient leaving prior to being seen by health care provider (principal)

== ENCOUNTER → 2022-11-20 | Outpatient (REF) | payer OTHER | LOC: M LAB REF 16:41 | PROVIDERS: ATTEND Physician Assistant | DX: J03.90 Acute tonsillitis, unspecified (principal) ==

== ENCOUNTER 2023-04-30 07:59 | Emergency (ER) | payer OTHER ==
[~2023-04-30] VITALS: Ht 157.5 cm; Wt 74.4 kg
[2023-04-30 09:49] LABS: BASO % 0.9 % (0.0-1.0); EOS # 0.2 10^3/uL (0.0-0.5); EOS % 5.6 % (0.0-3.0); HEMOGLOBIN 12.7 g/dl (12.0-15.5); LYMPH # 0.9 10^3/uL (1.5-5.0); LYMPH % 25.8 % (24.0-44.0); MEAN CORPUSCULAR HEMOGLOBIN 30.3 pg (27.0-33.0); MEAN CORPUSCULAR HGB CONC 32.6 g/dl (32.0-36.5); MEAN CORPUSCULAR VOLUME 93.1 fl (80.0-96.0); MONO # 0.5 10^3/uL (0.0-0.8); MONO % 13.6 % (2.0-8.0); NEUTROPHILS # 1.8 10^3/uL (1.5-8.5); NEUTROPHILS % 53.8 % (36.0-66.0); PLATELET COUNT, AUTOMATED 299 10^3/uL (150-450); RED BLOOD COUNT 4.19 10^6/uL (4.00-5.40); WHITE BLOOD COUNT 3.4 10^3/uL (4.0-10.0)
[2023-04-30 10:19] LABS: LIPASE 29 U/L (12-53)
[2023-04-30 10:21] LABS: ALBUMIN 3.6 G/DL (3.2-5.2); ALKALINE PHOSPHATASE 49 U/L (46-116); ALT/SGPT 14 U/L (7.0-40); AST/SGOT 10 U/L (<34); BILIRUBIN,DIRECT 0.1 MG/DL (<0.4); BILIRUBIN,TOTAL 0.3 MG/DL (0.3-1.2); BLOOD UREA NITROGEN 14 MG/DL (9-23); CARBON DIOXIDE LEVEL 25 MMOL/L (20-31); CHLORIDE LEVEL 108 MMOL/L (98-107); CREATININE FOR GFR 0.62 MG/DL (0.55-1.30); GLOMERULAR FILTRATION RATE > 60.0 (>60); GLUCOSE, FASTING 96 MG/DL (60-100); SODIUM LEVEL 139 MMOL/L (136-145); TOTAL PROTEIN 6.4 G/DL (5.7-8.2)
[2023-04-30 10:29] LABS: HCG, SERUM QUALITATIVE NEGATIVE (NEGATIVE)
[2023-04-30] MEDS ORDERED: ONDANSETRON 4MG 2ML VIAL IV ONE (11:10)
[2023-04-30] MEDS ORDERED: NS 1,000 ML IV ONE (11:10)
[2023-04-30] MEDS ORDERED: ONDA4TAB6 PO (12:27)
[2023-04-30 12:48] VITALS: BP 99/52; TEMP 97.5; O2SAT 99
== END 2023-04-30 12:57 | disposition home or self-care (01) ==
LOC: M ED 07:59
DX: R10.9 Unspecified abdominal pain (principal); R11.2 Nausea with vomiting, unspecified; R19.7 Diarrhea, unspecified; F12.10 Cannabis abuse, uncomplicated; F10.10 Alcohol abuse, uncomplicated; Z91.013 Allergy to seafood; Z79.83 Long term (current) use of bisphosphonates
CPT/HCPCS: 80048; 80076; 83690; 84703; 85025; 87486; 87581; 87633; 87798; 96361; 96374; 99284; J2405

== ENCOUNTER 2023-09-04 14:46 | Emergency (ER) | payer OTHER ==
[~2023-09-04] VITALS: Ht 157.5 cm; Wt 69.5 kg
[2023-09-04 14:47] VITALS: TEMP 98.5
[2023-09-04] MEDS: ACETAMINOPHEN 500 MG TAB PO ONE (17:27)
[2023-09-04] MEDS: KETOROLAC 30 MG/ML 1ML VIAL IM ONE (17:28)
[2023-09-04 17:38] VITALS: BP 118/67; O2SAT 98
== END 2023-09-04 18:04 | disposition home or self-care (01) ==
LOC: M ED 14:46
DX: S93.401A Sprain of unspecified ligament of right ankle, initial encounter (principal); Y92.9 Unspecified place or not applicable; Y93.9 Activity, unspecified; Y99.0 Civilian activity done for income or pay; W19.XXXA Unspecified fall, initial encounter; F17.210 Nicotine dependence, cigarettes, uncomplicated; Z91.013 Allergy to seafood
CPT/HCPCS: 73610; 73630; 96372; 99283; J1885

== ENCOUNTER 2024-02-03 16:15 | Emergency (ER) | payer OTHER, SELFPAY ==
[~2024-02-03] VITALS: Ht 157.5 cm; Wt 65.3 kg
[~2024-02-03 16:15] MED LIST changes: +ONDA-282 PO; -ONDA4TAB6 PO
[2024-02-03 16:36] VITALS: BP 122/58; TEMP 97.7; O2SAT 100
== END 2024-02-03 19:25 | disposition left against medical advice (07) ==
LOC: M ED 16:15
DX: Z53.21 Procedure and treatment not carried out due to patient leaving prior to being seen by health care provider (principal)

== ENCOUNTER 2024-06-14 14:39 | Emergency (ER) | payer OTHER, SELFPAY ==
[~2024-06-14] VITALS: Ht 157.5 cm; Wt 65.3 kg
[2024-06-14 15:06] LABS: BASO # 0.1 10^3/uL (0.0-0.2); BASO % 0.8 % (0.0-1.0); EOS # 0.1 10^3/uL (0.0-0.5); EOS % 0.5 % (0.0-3.0); HEMATOCRIT 36.8 % (36.0-47.0); HEMOGLOBIN 11.9 g/dl (12.0-15.5); LYMPH # 1.1 10^3/uL (1.5-5.0); LYMPH % 9.7 % (24.0-44.0); MEAN CORPUSCULAR HEMOGLOBIN 30.1 pg (27.0-33.0); MEAN CORPUSCULAR HGB CONC 32.3 g/dl (32.0-36.5); MEAN CORPUSCULAR VOLUME 93.2 fl (80.0-96.0); MONO # 0.6 10^3/uL (0.0-0.8); MONO % 4.9 % (2.0-8.0); NEUTROPHILS # 9.8 10^3/uL (1.5-8.5); NEUTROPHILS % 83.7 % (36.0-66.0); PLATELET COUNT, AUTOMATED 301 10^3/uL (150-450); RED BLOOD COUNT 3.95 10^6/uL (4.00-5.40); WHITE BLOOD COUNT 11.8 10^3/uL (4.0-10.0)
[2024-06-14] MEDS: NS (Normal Saline) 0.9% 1,000 ML IV ONE (15:06)
[2024-06-14] MEDS: KETOROLAC 30 MG/ML 1ML VIAL IV ONE ×2 (15:20→18:22)
[2024-06-14 15:34] LABS: LIPASE 25 U/L (12-53)
[2024-06-14 15:35] LABS: HCG, SERUM QUALITATIVE NEGATIVE (NEGATIVE)
[2024-06-14 15:36] LABS: ALBUMIN 4.2 G/DL (3.2-5.2); ALKALINE PHOSPHATASE 44 U/L (35-104); ALT/SGPT 14 U/L (7.0-40); AST/SGOT 10 U/L (<34); BILIRUBIN,DIRECT 0.1 MG/DL (<0.4); BILIRUBIN,TOTAL 0.4 MG/DL (0.3-1.2); BLOOD UREA NITROGEN 12 MG/DL (9-23); CARBON DIOXIDE LEVEL 25 MMOL/L (20-31); CHLORIDE LEVEL 109 MMOL/L (98-107); GLOMERULAR FILTRATION RATE > 60.0 (>60); GLUCOSE, FASTING 105 MG/DL (60-100); POTASSIUM SERUM 3.9 MMOL/L (3.5-5.1); SODIUM LEVEL 142 MMOL/L (136-145); TOTAL PROTEIN 7.2 G/DL (5.7-8.2)
[2024-06-14] MEDS: ACETAMINOPHEN *IV* 1,000 MG in IV 1 EA IV ONE (17:05)
[2024-06-14] MEDS: PERCOCET 5MG/325MG TAB PO ONE (18:26)
[2024-06-14 18:42] LABS: HEMATOCRIT 33.7 % (36.0-47.0); HEMOGLOBIN 11.1 g/dl (12.0-15.5); MEAN CORPUSCULAR HEMOGLOBIN 30.5 pg (27.0-33.0); MEAN CORPUSCULAR HGB CONC 32.9 g/dl (32.0-36.5); MEAN CORPUSCULAR VOLUME 92.6 fl (80.0-96.0); PLATELET COUNT, AUTOMATED 282 10^3/uL (150-450); RED BLOOD COUNT 3.64 10^6/uL (4.00-5.40); WHITE BLOOD COUNT 17.6 10^3/uL (4.0-10.0)
[2024-06-14] MEDS ORDERED: PERC5TAB12 PO (20:35)
[2024-06-14] MEDS: OXYCODONE/APAP 5MG/325MG(HOME DOSE PACK) PO ONE (20:35)
[2024-06-14 20:46] VITALS: BP 97/56; TEMP 98; O2SAT 99
== END 2024-06-14 21:18 | disposition home or self-care (01) ==
LOC: M ED 14:39
DX: R55 Syncope and collapse (principal); J45.909 Unspecified asthma, uncomplicated; Z91.013 Allergy to seafood; Z79.899 Other long term (current) drug therapy
CPT/HCPCS: 74176; 76856; 80047; 80048; 80076; 83690; 84702; 84703; 85025; 85027; 86850; 86900; 86901; 93041; 96361; 96365; 96375; 96376; 99285; J0131; J1885

== ENCOUNTER 2024-11-28 13:25 | Emergency (ER) | payer MEDICAID, MEDICARE, OTHER ==
[~2024-11-28] VITALS: Ht 157.5 cm; Wt 68.2 kg
[~2024-11-28 13:25] MED LIST changes: +PERC5TAB12 PO
[2024-11-28] MEDS: KETOROLAC 60 MG/2 ML VIAL IM ONE (17:29)
[2024-11-28 18:20] VITALS: BP 100/72; TEMP 98.5; O2SAT 100
[2024-11-28] MEDS ORDERED: AMOX875T2 PO (18:20)
[2024-11-28] MEDS ORDERED: KETO-204 PO (18:20)
== END 2024-11-28 18:28 | disposition home or self-care (01) ==
LOC: M ED 13:25
DX: K08.89 Other specified disorders of teeth and supporting structures (principal); J45.909 Unspecified asthma, uncomplicated; Z91.013 Allergy to seafood; Z79.2 Long term (current) use of antibiotics; Z79.899 Other long term (current) drug therapy
CPT/HCPCS: 96372; 99283; J1885